=== PATIENT | female | born 1955 | race Caucasian/White ===

== ENCOUNTER 2020-07-21 20:52 | Outpatient (REF) | payer MEDICARE, MEDICAID, SELFPAY ==
[2020-07-21 21:46] LABS: Abs Immature Grans 0.02 10^3/uL (0.0-0.06); Absolute Basophil Count 0.04 10^3/uL (0.0-0.2); Absolute Eosinophil Count 0.14 10^3/uL (0.0-0.7); Absolute Lymphocyte Count 1.85 10^3/uL (1.2-3.4); Absolute Neutrophil Count 3.48 10^3/uL (1.2-6.7); Basophils % 0.7; Eosinophils % 2.3; HCT 38.7 % (36.0-46.0); HGB 12.3 g/dL (11.2-15.7); Immature Grans % 0.3; Lymphocytes % 30.7; MCH 27.7 pg (27.0-33.0); MCHC 31.8 % (32.0-36.0); MCV 87.2 fL (80-95); MPV 12.3 fL (8.0-11.0); Monocytes % 8.3; Neutrophils % 57.7; Nucleated RBC 0 %; Platelet Count 143 10^3/uL (130-400); RBC 4.44 10^6/uL (3.93-5.22); RDW 16.7 % (11.7-14.6); RDW-SD 54.1 fL; WBC 6.03 10^3/uL (4.4-10.8)
[2020-07-21 22:22] LABS: ALT 55 U/L (14-59); AST 63 U/L (15-37); Albumin 3.4 g/dL (3.4-5.0); Alkaline Phosphatase 278 U/L (46-116); Anion Gap 7.5 mmol/L (3-11); BUN 8 mg/dL (7-18); Bilirubin, Total 0.7 mg/dL (0.2-1.0); CO2 29.5 mmol/L (21.0-32.0); CREATININE 0.73 mg/dL (0.55-1.02); Calcium 8.9 mg/dL (8.5-10.1); Calculated LDL 75 mg/dL (<100); Chloride 104 mmol/L (98-107); Cholesterol 128 mg/dL (<200); Glucose 166 mg/dL (74-106); HDL Cholesterol 35 mg/dL (40-60); Potassium 3.6 mmol/L (3.5-5.1); Sodium 141 mmol/L (136-145); Total Protein 7.2 g/dL (6.4-8.2); Triglyceride 90 mg/dL (<150)
== END 2020-07-21 21:12 ==
LOC: NCHCN 20:52
PROVIDERS: Visit Provider Nurse Practitioner Community Health
DX: Z13.220 Encounter for screening for lipoid disorders (principal); R94.5 Abnormal results of liver function studies; D72.820 Lymphocytosis (symptomatic)
CPT/HCPCS: 80053; 80061; 85025

== ENCOUNTER 2020-07-28 16:49 | Outpatient (REF) | payer MEDICARE, MEDICAID, SELFPAY ==
--- NOTE | 2020-07-28 14:30 | PAPFT_PTH ---
PATIENT: Chary Gordillo LOC: [facility]#:[id number] AGE/SX: 65/F ROOM: RE07/28/[address]: Lilo Fermin : 1955 BED: DIS: 07/28/2020 SPEC #: [id number] RECD: 07/29/20 12:41 STATUS: LEIDA REQ #: [id number] JASON: 07/28/20 14:[address]: Lilo Fermin DEPT: [facility] Cytology RECD BY: Dorinda Gutierrez Tissues: 1 - CX/ENDOCX FOR PAP SMEARS Procedures: PAP THIN PREP/[facility] Screening HPV DNA PROBE Comments: [id number] ([facility]#)
== END 2020-07-28 17:09 ==
LOC: NCHCN 16:49
PROVIDERS: PCP Nurse Practitioner Community Health; Visit Provider Nurse Practitioner Community Health
DX: Z12.4 Encounter for screening for malignant neoplasm of cervix; Z11.51 Encounter for screening for human papillomavirus (HPV)
CPT/HCPCS: 88142; 87624

== ENCOUNTER 2020-08-06 18:19 | Outpatient (REF) | payer MEDICARE, MEDICAID, SELFPAY ==
[2020-08-10 17:33] LABS: SARS-CoV-2 RNA Undetected (Undetected); SARS-CoV-2 Specimen Source Nasal
== END 2020-08-06 18:39 ==
LOC: NCHCN 18:19
PROVIDERS: PCP Nurse Practitioner Community Health; Visit Provider Nurse Practitioner Community Health
DX: J06.9 Acute upper respiratory infection, unspecified (principal)
CPT/HCPCS: U0003

== ENCOUNTER 2020-09-10 18:32 | Outpatient (REF) | payer MEDICARE, MEDICAID, SELFPAY ==
[2020-09-10 23:39] LABS: Prothrombin Time 77.3 sec (9.3-11.0)
[2020-09-10 23:40] LABS: INR 8.1 (0.9-1.1)
== END 2020-09-10 18:52 ==
LOC: NCHCN 18:32
PROVIDERS: PCP Nurse Practitioner Community Health; Visit Provider Nurse Practitioner Community Health
DX: Z79.01 Long term (current) use of anticoagulants (principal)
CPT/HCPCS: 85610

== ENCOUNTER 2020-09-17 20:00 | Outpatient (REF) | payer MEDICARE, MEDICAID, SELFPAY ==
[2020-09-17 22:02] LABS: Lipase 283 U/L (73-393)
== END 2020-09-17 20:20 ==
LOC: NCHCN 20:00
PROVIDERS: PCP Nurse Practitioner Community Health; Visit Provider Nurse Practitioner Community Health
DX: R07.9 Chest pain, unspecified (principal)
CPT/HCPCS: 83690

== ENCOUNTER 2020-09-24 23:09 | Outpatient (REF) | payer MEDICARE, MEDICAID, SELFPAY ==
[2020-09-26 14:40] LABS: COVID-19 RT-PCR UVMMC Result Negative (Negative)
== END 2020-09-24 23:29 ==
LOC: NCHCN 23:09
PROVIDERS: PCP Nurse Practitioner Community Health; Visit Provider Nurse Practitioner Community Health
DX: R05 Cough (principal)
CPT/HCPCS: U0003

== ENCOUNTER 2021-04-06 16:55 | Outpatient (REF) | payer MEDICARE, MEDICAID, SELFPAY ==
[2021-04-06 21:22] LABS: COMMENT (LAB VIEW ONLY) 17.49 mg/dL
== END 2021-04-06 16:56 | disposition home or self-care (01) ==
LOC: NCHCN 16:55
PROVIDERS: PCP Nurse Practitioner Community Health; Visit Provider Nurse Practitioner Community Health
DX: E11.42 Type 2 diabetes mellitus with diabetic polyneuropathy (principal)
CPT/HCPCS: 82043; 82570

== ENCOUNTER 2021-07-06 08:20 | Outpatient (REF) | payer MEDICARE, MEDICAID, SELFPAY ==
[2021-07-06 21:53] LABS: Prothrombin Time 14.4 sec (9.3-11.0)
[2021-07-06 22:06] LABS: INR 1.4 (0.9-1.1)
[2021-07-06 22:36] LABS: ALT 40 U/L (14-59); AST 68 U/L (15-37); Albumin 2.7 g/dL (3.4-5.0); Alkaline Phosphatase 260 U/L (46-116); Anion Gap 10.5 mmol/L (3-11); BUN 4 mg/dL (7-18); CO2 28.5 mmol/L (21.0-32.0); CREATININE 0.8 mg/dL (0.55-1.02); Calcium 8.5 mg/dL (8.5-10.1); Chloride 106 mmol/L (98-107); Glucose 148 mg/dL (74-106); Potassium 3.1 mmol/L (3.5-5.1); Sodium 145 mmol/L (136-145); Total Protein 6.2 g/dL (6.4-8.2)
== END 2021-07-06 08:21 | disposition home or self-care (01) ==
LOC: NCHCN 08:20
PROVIDERS: PCP Nurse Practitioner Community Health; Visit Provider Nurse Practitioner Community Health
DX: K76.0 Fatty (change of) liver, not elsewhere classified (principal); R23.8 Other skin changes; Z79.01 Long term (current) use of anticoagulants
CPT/HCPCS: 80053; 85610

== ENCOUNTER 2021-07-16 12:27 | Outpatient (REF) | payer MEDICARE, MEDICAID, SELFPAY ==
[2021-07-16 21:57] LABS: Potassium 3.3 mmol/L (3.5-5.1)
== END 2021-07-16 12:28 | disposition home or self-care (01) ==
LOC: NCHCN 12:27
PROVIDERS: PCP Nurse Practitioner Community Health; Visit Provider Nurse Practitioner Community Health
DX: E87.6 Hypokalemia (principal)
CPT/HCPCS: 84132

== ENCOUNTER 2021-07-28 13:49 | Outpatient (REF) | payer MEDICARE, MEDICAID, SELFPAY ==
[2021-07-28 22:37] LABS: Magnesium 1.8 mg/dL (1.8-2.4)
== END 2021-07-28 13:50 | disposition home or self-care (01) ==
LOC: NCHCN 13:49
PROVIDERS: PCP Nurse Practitioner Community Health; Visit Provider Nurse Practitioner Community Health
DX: E87.6 Hypokalemia (principal); K76.0 Fatty (change of) liver, not elsewhere classified; R19.7 Diarrhea, unspecified
CPT/HCPCS: 83735; 84132

== ENCOUNTER 2021-08-05 16:28 | Outpatient (REF) | payer MEDICARE, MEDICAID, SELFPAY ==
[2021-08-05 21:16] LABS: HCT 36.3 % (36.0-46.0); HGB 11.7 g/dL (11.2-15.7); MCH 27.3 pg (27.0-33.0); MCHC 32.2 % (32.0-36.0); MCV 84.6 fL (80-95); MPV 11.6 fL (8.0-11.0); Platelet Count 156 10^3/uL (130-400); RBC 4.29 10^6/uL (3.93-5.22); RDW 17.5 % (11.7-14.6); RDW-SD 54.1 fL; WBC 6.27 10^3/uL (4.4-10.8)
[2021-08-05 21:35] LABS: ALT 47 U/L (14-59); AST 71 U/L (15-37); Albumin 2.8 g/dL (3.4-5.0); Alkaline Phosphatase 274 U/L (46-116); Anion Gap 9.7 mmol/L (3-11); BUN 5 mg/dL (7-18); Bilirubin, Total 1.4 mg/dL (0.2-1.0); CO2 28.3 mmol/L (21.0-32.0); CREATININE 0.7 mg/dL (0.55-1.02); Calcium 8.5 mg/dL (8.5-10.1); Chloride 106 mmol/L (98-107); Glucose 104 mg/dL (74-106); Potassium 3.3 mmol/L (3.5-5.1); Sodium 144 mmol/L (136-145)
[2021-08-05 22:23] LABS: Lipase 81 U/L (73-393)
== END 2021-08-05 16:29 | disposition home or self-care (01) ==
LOC: NCHCN 16:28
PROVIDERS: PCP Nurse Practitioner Community Health; Visit Provider Nurse Practitioner Family
DX: R53.83 Other fatigue (principal); E87.6 Hypokalemia; R10.9 Unspecified abdominal pain
CPT/HCPCS: 80053; 83690; 85027

== ENCOUNTER 2021-08-10 17:15 | Outpatient (REF) | payer MEDICARE, MEDICAID, SELFPAY ==
[2021-08-10 21:25] LABS: Anion Gap 8.8 mmol/L (3-11); BUN 6 mg/dL (7-18); CO2 27.2 mmol/L (21.0-32.0); CREATININE 0.9 mg/dL (0.55-1.02); Calcium 8.5 mg/dL (8.5-10.1); Chloride 107 mmol/L (98-107); Glucose 116 mg/dL (74-106); Potassium 3.5 mmol/L (3.5-5.1); Sodium 143 mmol/L (136-145)
== END 2021-08-10 17:16 | disposition home or self-care (01) ==
LOC: NCHCN 17:15
PROVIDERS: PCP Nurse Practitioner Community Health; Visit Provider Nurse Practitioner Community Health
DX: R53.83 Other fatigue (principal); E87.6 Hypokalemia; G89.4 Chronic pain syndrome
CPT/HCPCS: 80048

== ENCOUNTER 2022-02-23 18:48 | Outpatient (REF) | payer MEDICARE, MEDICAID, SELFPAY ==
[2022-02-23 14:20] LABS: HCT 33.7 % (36.0-46.0); HGB 11.4 g/dL (11.2-15.7); INR 1.3 (0.9-1.1); MCH 28.6 pg (27.0-33.0); MCHC 33.8 % (32.0-36.0); MCV 85 fL (80-95); Platelet Count 133 10^3/uL (130-400); Prothrombin Time 13.2 sec (9.3-11.0); RBC 3.99 10^6/uL (3.93-5.22); RDW 16.2 % (11.7-14.6); RDW-SD 49.9 fL; WBC 5.33 10^3/uL (4.4-10.8)
[2022-02-23 14:23] LABS: ALT 52 U/L (14-59); AST 67 U/L (15-37); Alkaline Phosphatase 252 U/L (46-116); Anion Gap 8.3 mmol/L (3-11); BUN 10 mg/dL (7-18); Bilirubin, Total 0.9 mg/dL (0.2-1.0); CO2 28.7 mmol/L (21.0-32.0); CREATININE 0.8 mg/dL (0.55-1.02); Calcium 8.7 mg/dL (8.5-10.1); Chloride 104 mmol/L (98-107); Glucose 146 mg/dL (74-106); Potassium 3.5 mmol/L (3.5-5.1); Sodium 141 mmol/L (136-145); Total Protein 6.7 g/dL (6.4-8.2)
== END 2022-02-23 18:49 | disposition home or self-care (01) ==
LOC: NCHCN 18:48
PROVIDERS: PCP Nurse Practitioner Community Health; Visit Provider Nurse Practitioner Family
DX: R58 Hemorrhage, not elsewhere classified (principal)
CPT/HCPCS: 80053; 85027; 85610

== ENCOUNTER 2022-04-13 17:12 | Outpatient (REF) | payer MEDICARE, MEDICAID, SELFPAY ==
[2022-04-13 21:19] LABS: COMMENT (LAB VIEW ONLY) 80.86 mg/dL; Microalb ug/mg Crea 10.6 ug/mg Cr
== END 2022-04-13 17:13 | disposition home or self-care (01) ==
LOC: NCHCN 17:12
PROVIDERS: PCP Nurse Practitioner Community Health; Visit Provider Nurse Practitioner Family
DX: E11.40 Type 2 diabetes mellitus with diabetic neuropathy, unspecified (principal); K74.60 Unspecified cirrhosis of liver
CPT/HCPCS: 82043; 82570

== ENCOUNTER 2022-07-01 16:16 | Outpatient (REF) | payer MEDICARE, MEDICAID, SELFPAY ==
[2022-07-01 21:06] LABS: ALT 90 U/L (14-59); AST 66 U/L (15-37); Albumin 3.2 g/dL (3.4-5.0); Alkaline Phosphatase 287 U/L (46-116); Anion Gap 9.5 mmol/L (3-11); BUN 9 mg/dL (7-18); Bilirubin, Total 1.3 mg/dL (0.2-1.0); CO2 26.5 mmol/L (21.0-32.0); CREATININE 0.9 mg/dL (0.55-1.02); Calcium 9.3 mg/dL (8.5-10.1); Chloride 96 mmol/L (98-107); Estimated GFR 69.64 (mL/min/1.73m2); Glucose 194 mg/dL (74-106); Potassium 4.1 mmol/L (3.5-5.1); Sodium 132 mmol/L (136-145); Total Protein 6.9 g/dL (6.4-8.2)
== END 2022-07-01 16:17 | disposition home or self-care (01) ==
LOC: NCHCN 16:16
PROVIDERS: PCP Nurse Practitioner Community Health; Visit Provider Nurse Practitioner Family
DX: I10 Essential (primary) hypertension (principal)
CPT/HCPCS: 80053

== ENCOUNTER 2022-08-30 21:02 | Outpatient (REF) | payer MEDICARE, MEDICAID, SELFPAY ==
[2022-08-30 21:32] LABS: Abs Immature Grans 0.02 10^3/uL (0.0-0.06); Absolute Eosinophil Count 0.11 10^3/uL (0.0-0.7); Absolute Lymphocyte Count 1.01 10^3/uL (1.2-3.4); Absolute Monocyte Count 1.53 10^3/uL (0.1-0.8); Basophils % 1.1; Eosinophils % 1.2; HCT 35.7 % (36.0-46.0); Immature Grans % 0.2; Lymphocytes % 11.1; MCH 26.6 pg (27.0-33.0); MCHC 33.6 % (32.0-36.0); MCV 79 fL (80-95); MPV 10.7 fL (8.0-11.0); Monocytes % 16.9; Neutrophils % 69.5; Platelet Count 146 10^3/uL (130-400); RBC 4.51 10^6/uL (3.93-5.22); RDW 18.9 % (11.7-14.6); WBC 9.07 10^3/uL (4.4-10.8)
[2022-08-30 21:41] LABS: Diff Comment Agrees w/ Instrument; RBC Morphology Normal
[2022-08-30 21:43] LABS: ALT 89 U/L (14-59); AST 113 U/L (15-37); Alkaline Phosphatase 285 U/L (46-116); Anion Gap 4.3 mmol/L (3-11); BUN 8 mg/dL (7-18); Bilirubin, Total 2.5 mg/dL (0.2-1.0); CO2 33.7 mmol/L (21.0-32.0); CREATININE 0.9 mg/dL (0.55-1.02); Calcium 7.8 mg/dL (8.5-10.1); Chloride 93 mmol/L (98-107); Estimated GFR 69.64 (mL/min/1.73m2); Glucose 229 mg/dL (74-106); Magnesium 1.4 mg/dL (1.8-2.4); Potassium 3.2 mmol/L (3.5-5.1); Sodium 131 mmol/L (136-145); Total Protein 5.1 g/dL (6.4-8.2)
== END 2022-08-30 21:03 | disposition home or self-care (01) ==
LOC: NCHCN 21:02
PROVIDERS: PCP Nurse Practitioner Family; Visit Provider Nurse Practitioner Family
DX: K75.81 Nonalcoholic steatohepatitis (NASH) (principal)
CPT/HCPCS: 80053; 83735; 85025

== ENCOUNTER 2022-09-08 20:36 | Outpatient (REF) | payer MEDICARE, MEDICAID, SELFPAY ==
[2022-09-08 20:59] LABS: ALT 76 U/L (14-59); AST 77 U/L (15-37); Albumin 2.5 g/dL (3.4-5.0); Alkaline Phosphatase 324 U/L (46-116); Anion Gap 6.1 mmol/L (3-11); BUN 7 mg/dL (7-18); Bilirubin, Total 4.6 mg/dL (0.2-1.0); CO2 28.9 mmol/L (21.0-32.0); Calcium 8.5 mg/dL (8.5-10.1); Chloride 95 mmol/L (98-107); Estimated GFR 61.36 (mL/min/1.73m2); Glucose 192 mg/dL (74-106); Potassium 4.2 mmol/L (3.5-5.1); Sodium 130 mmol/L (136-145)
== END 2022-09-08 20:37 | disposition home or self-care (01) ==
LOC: LBN 20:36
PROVIDERS: PCP Nurse Practitioner Family; Visit Provider Nurse Practitioner Family
DX: K76.82 Hepatic encephalopathy (principal); I10 Essential (primary) hypertension; E11.9 Type 2 diabetes mellitus without complications
CPT/HCPCS: 80053

== ENCOUNTER 2022-10-04 15:02 | Outpatient (REF) | payer MEDICARE, MEDICAID, SELFPAY ==
[2022-10-04 16:06] LABS: HCT 33.2 % (36.0-46.0); HGB 10.9 g/dL (11.2-15.7); MCH 27.9 pg (27.0-33.0); MCHC 32.8 % (32.0-36.0); MCV 85 fL (80-95); MPV 10.4 fL (8.0-11.0); Platelet Count 142 10^3/uL (130-400); RBC 3.91 10^6/uL (3.93-5.22); RDW 22.8 % (11.7-14.6); RDW-SD 67.7 fL; WBC 7.84 10^3/uL (4.4-10.8)
[2022-10-04 16:37] LABS: ALT 52 U/L (14-59); AST 53 U/L (15-37); Albumin 2.9 g/dL (3.4-5.0); Alkaline Phosphatase 298 U/L (46-116); Anion Gap 5.3 mmol/L (3-11); BUN 5 mg/dL (7-18); Bilirubin, Total 4.9 mg/dL (0.2-1.0); CO2 34.7 mmol/L (21.0-32.0); CREATININE 0.8 mg/dL (0.55-1.02); Calcium 8.1 mg/dL (8.5-10.1); Chloride 98 mmol/L (98-107); Estimated GFR 80.21 (mL/min/1.73m2); Glucose 160 mg/dL (74-106); Potassium 3.3 mmol/L (3.5-5.1); Sodium 138 mmol/L (136-145); Total Protein 5.7 g/dL (6.4-8.2)
== END 2022-10-04 15:03 | disposition home or self-care (01) ==
LOC: LBN 15:02
PROVIDERS: PCP Nurse Practitioner Family; Visit Provider Nurse Practitioner Family
DX: K74.60 Unspecified cirrhosis of liver (principal); I10 Essential (primary) hypertension; E11.9 Type 2 diabetes mellitus without complications
CPT/HCPCS: 80053; 85027; 85610

== ENCOUNTER 2022-10-11 16:35 | Outpatient (REF) | payer MEDICARE, MEDICAID, SELFPAY ==
[2022-10-11 19:25] LABS: ALT 37 U/L (14-59); AST 46 U/L (15-37); Albumin 3.2 g/dL (3.4-5.0); Alkaline Phosphatase 298 U/L (46-116); Anion Gap 8.3 mmol/L (3-11); BUN 6 mg/dL (7-18); Bilirubin, Total 5.5 mg/dL (0.2-1.0); CO2 31.7 mmol/L (21.0-32.0); CREATININE 0.9 mg/dL (0.55-1.02); Chloride 98 mmol/L (98-107); Estimated GFR 69.64 (mL/min/1.73m2); Glucose 122 mg/dL (74-106); Potassium 3.8 mmol/L (3.5-5.1); Sodium 138 mmol/L (136-145); Total Protein 6.5 g/dL (6.4-8.2)
== END 2022-10-11 16:36 | disposition home or self-care (01) ==
LOC: NCHCN 16:35
PROVIDERS: PCP Nurse Practitioner Family; Visit Provider Nurse Practitioner Family
DX: K76.82 Hepatic encephalopathy (principal); I10 Essential (primary) hypertension; E11.9 Type 2 diabetes mellitus without complications
CPT/HCPCS: 80053; 85027

== ENCOUNTER 2022-10-12 10:10 | Outpatient (REF) | payer MEDICARE, MEDICAID, SELFPAY ==
[2022-10-12 22:09] LABS: HCT 42.9 % (36.0-46.0); HGB 13.7 g/dL (11.2-15.7); MCH 27.8 pg (27.0-33.0); MCHC 31.9 % (32.0-36.0); MCV 87 fL (80-95); MPV 11.8 fL (8.0-11.0); Platelet Count 105 10^3/uL (130-400); RBC 4.93 10^6/uL (3.93-5.22); RDW 22.4 % (11.7-14.6); RDW-SD 67.8 fL; WBC 8.19 10^3/uL (4.4-10.8)
== END 2022-10-12 10:11 | disposition home or self-care (01) ==
LOC: NCHCN 10:10
PROVIDERS: PCP Nurse Practitioner Family; Visit Provider Nurse Practitioner Family
DX: K76.82 Hepatic encephalopathy (principal)
CPT/HCPCS: 85027